=== PATIENT | male | born 1995 | race African-American/Black ===

== ENCOUNTER 2021-10-24 09:21 | Emergency (ER) | payer OTHER ==
[~2021-10-24] VITALS: Ht 180.3 cm; Wt 76.3 kg
--- NOTE | 2021-10-24 10:00 | NUR ---
BIBS FOR C/O UPPER FRONT TOOTH PAIN 11/26 AND UPPER LIP SWELLING SINCE TODAY AM. WILL CONTINUE TO MONITOR THE PATIENT.
[2021-10-24] MEDS ORDERED: IBUP-1955 PO (10:56)
[2021-10-24] MEDS ORDERED: AMOX-430 PO (10:56)
[2021-10-24 11:06] VITALS: BP 131/75
--- NOTE | 2021-10-24 11:06 | NUR ---
Patient discharged to home in stable condition. Written and verbal after care instructions given. Patient verbalizes understanding of instruction.
== END 2021-10-24 11:07 | disposition home or self-care (01) ==
LOC: ER 09:21
DX: K04.7 Periapical abscess without sinus (principal)